=== PATIENT | female | born 1985 | race Caucasian/White ===

== ENCOUNTER 2017-05-24 12:30 | Emergency (ER) | payer BC ==
[~2017-05-24] VITALS: Ht 162.6 cm; Wt 55.2 kg
[2017-05-24 12:41] VITALS: TEMP 36.7; Ht 162.6 cm; Wt 55.2 kg
--- NOTE | 2017-05-24 13:15 | EMERGENCY ROOM VISIT NOTE ---
History Report prepared by Rajinder: Jason Stapleton Under the Supervision of: Dr. Héctor Mcgee M.D. First contact with patient: 12:56 Chief Complaint: GI ASSESSMENT Stated Complaint: PAIN IN R OVARY-BACK PAIN-VAGINA PAIN-6WKS PREG History of Present Illness The patient is a 32 year old female who is 6-weeks who presents to the Emergency Room with complaints of persistent abdominal pain that started a week ago. She states that she has also been having pelvic pain, and the pelvic floor has a "grabbing pain", which has been worsening. The patient adds that she has had pain between her shoulder blades with some shortness of breath. She says that she was nauseous this morning. She notes that she has had heart palpitations off and on recently, even when laying in bed. She says that she recently switched her OBGYN, and has her first appointment with the new one next month. The patient says that her last menstrual cycle was April 16, and has not had one this month. She says that she called her new OB prior to arrival and was told to come here. The patient adds that she has cysts on her ovaries. This is her second , and 10 days after her first , she had a hemorrhage due to having placenta left in her during the . The patient says that she was recently evaluated for syncope in the setting of urinary incontinence, and there was questionable activity in her prior EEG, but a recent 4 day study determined that she does not have epilepsy. The patient was briefly on Keppra, but is no longer on it. She notes that she has been tapering off Klonopin 2 mg. She denies any burning with urination or vision or hearing changes. Source of History: patient Onset: A week ago Position: abdomen Timing: other (persistent) Associated Symptoms: + SOB, + nausea, + back pain, No urinary symptoms ( burning with urination) Note: Associated symptoms: Pelvic pain. Intermittent heart palpitations. Denies vision or hearing changes. Review of Systems See HPI for pertinent positives and negatives. A total of ten systems were reviewed and were otherwise negative. Past Medical & Surgical Medical Problems: (1) Hemorrhage affecting (2) Ovarian cyst Family History Autoimmune disorder Cancer Diabetes mellitus Social History Smoking Status: Never Smoker Smokeless Tobacco Use: No Alcohol Use: none Occupation Status: unemployed Current/Historical Medications Scheduled Ascorbic Acid (Vitamin C 500 mg), 1,000 MG PO DAILY Clonazepam (Klonopin), 0.5 MG PO BID Cyanocobalamin (Cyanocobalamin), 1,000 MCG IM Mo Cyanocobalamin (Vitamin B-12), Unknown Dose PO DAILY Folic Acid (Folvite), 1 MG PO DAILY Magnesium Oxide (Magnesium), 200 MG PO DAILY Multivit/Min/Iron/Fol Ac/Pren ( Vitamin), 1 TAB PO DAILY Riboflavin (Vitamin B-2), 100 MG PO DAILY Allergies Coded Allergies: Levetiracetam (Unverified Allergy, Unknown, keppra rage, 05/24/17) Prednisone (Unverified Allergy, Unknown, rapid heartbeat/irritable, ) Sulfa Antibiotics (Unverified Allergy, Unknown, swelling, 05/24/17) Physical Exam Vital Signs Date Time Temp Pulse Resp B/P (MAP) Pulse Ox O2 Delivery O2 Flow Rate FiO2 05/24/17 17:13 72 18 107/61 100 05/24/17 15:20 71 18 100/66 100 Room Air 05/24/17 12:41 36.7 95 16 137/90 98 Room Air Physical Exam GENERAL: Awake, alert, well-appearing, in no distress HENT: Normocephalic, atraumatic. Oropharynx unremarkable. EYES: Normal conjunctiva. Sclera non-icteric. NECK: Supple. No nuchal rigidity. FROM. No JVD. RESPIRATORY: Clear to auscultation. CARDIAC: Regular rate, normal rhythm. Extremities warm and well perfused. Pulses equal. ABDOMEN: Soft, non-distended. Mild tenderness in right lower quadrant, no peritoneal signs. No rebound or guarding. No masses. RECTAL: Deferred. MUSCULOSKELETAL: Chest examination reveals no tenderness. The back is symmetrical on inspection without obvious abnormality. Mild tenderness in right CVA as well as mid-thoracic area in paraspinal muscles. No joint edema. LOWER EXTREMITIES: Calves are equal size bilaterally and non-tender. No edema. No discoloration. NEURO: Normal sensorium. No sensory or motor deficits noted. SKIN: No rash or jaundice noted. BEDSIDE ULTRASOUND: Transabdominal is limited but no definitive IUP. Medical Decision & Procedures ER Provider Diagnostic Interpretation: Radiology results as stated below per my review and radiologist interpretation: ULTRASOUND CLINICAL HISTORY: Right lower quadrant pain. 6 weeks . COMPARISON STUDY: No previous studies for comparison. TECHNIQUE: Transabdominal and transvaginal sonography of the pelvis was performed. FINDINGS: A probable intrauterine gestational sac is noted. This contains a probable yolk sac which measures 0.17 cm. A possible pole is noted with a crown-rump length of 0.12 cm. No cardiac activity is identified. The left ovary is normal. The right ovary contains a 1.9 cm hypoechoic lesion suggestive of a corpus luteal cyst. Color flow was identified within each ovary. There was no free fluid. IMPRESSION: 1. Intrauterine gestational sac identified which contains a yolk sac and possible tiny pole. No cardiac activity identified although this likely reflects a normal early intrauterine gestation. Therefore, clinical follow-up, including serial beta hCG levels and ultrasound is recommended. 2. 1.9 cm corpus luteal cyst within the right ovary. Electronically signed by: Mac Robison M.D. 05/24/2017 3:28 PM Dictated Date/Time: 05/24/2017 3:24 PM CHEST ONE VIEW PORTABLE CLINICAL HISTORY: 32 years-old Female presenting with CP (6wk use shield). TECHNIQUE: Portable upright AP view of the chest was obtained. COMPARISON: None. FINDINGS: Cardiomediastinal silhouette normal. Lungs and pleural spaces clear. Osseous structures normal. Upper abdomen normal. IMPRESSION: 1. No acute cardiopulmonary disease. Electronically signed by: Francisco Harmon M.D. 05/24/2017 2:25 PM Dictated Date/Time: 05/24/2017 2:24 PM Laboratory Results 05/24/17 13:50 Red Blood Count 4.02, Mean Corpuscular Volume 92.3, Mean Corpuscular Hemoglobin 32.3, Mean Corpuscular Hemoglobin Concent 35.0, Mean Platelet Volume 9.1, Neutrophils (%) (Auto) 58.5, Lymphocytes (%) (Auto) 31.8, Monocytes (%) (Auto) 6.7, Eosinophils (%) (Auto) 2.6, Basophils (%) (Auto) 0.2, Neutrophils # (Auto) 3.12, Lymphocytes # (Auto) 1.70, Monocytes # (Auto) 0.36, Eosinophils # (Auto) 0.14, Basophils # (Auto) 0.01 05/24/17 13:50 Test 05/24/17 13:50 05/24/17 13:55 White Blood Count 5.34 K/uL (4.8-10.8) Red Blood Count 4.02 M/uL (4.2-5.4) Hemoglobin 13.0 g/dL (12.0-16.0) Hematocrit 37.1 % (37-47) Mean Corpuscular Volume 92.3 fL (80-100) Mean Corpuscular Hemoglobin 32.3 pg (25-34) Mean Corpuscular Hemoglobin Concent 35.0 g/dl (32-36) Platelet Count 259 K/uL (130-400) Mean Platelet Volume 9.1 fL (7.4-10.4) Neutrophils (%) (Auto) 58.5 % Lymphocytes (%) (Auto) 31.8 % Monocytes (%) (Auto) 6.7 % Eosinophils (%) (Auto) 2.6 % Basophils (%) (Auto) 0.2 % Neutrophils # (Auto) 3.12 K/uL (1.4-6.5) Lymphocytes # (Auto) 1.70 K/uL (1.2-3.4) Monocytes # (Auto) 0.36 K/uL (0.11-0.59) Eosinophils # (Auto) 0.14 K/uL (0-0.5) Basophils # (Auto) 0.01 K/uL (0-0.2) RDW Standard Deviation 41.7 fL (36.4-46.3) RDW Coefficient of Variation 12.2 % (11.5-14.5) Immature Granulocyte % (Auto) 0.2 % Immature Granulocyte # (Auto) 0.01 K/uL (0.00-0.02) Anion Gap 7.0 mmol/L (3-11) Est Creatinine Clear Calc Drug Dose 103.0 ml/min Estimated GFR () 135.4 Estimated GFR (Non- 116.8 BUN/Creatinine Ratio 19.1 (10-20) Calcium Level 8.7 mg/dl (8.5-10.1) Total Bilirubin 0.4 mg/dl (0.2-1) Direct Bilirubin 0.1 mg/dl (0-0.2) Aspartate Amino Transf (AST/SGOT) 9 U/L (15-37) Alanine Aminotransferase (ALT/SGPT) 15 U/L (12-78) Alkaline Phosphatase 43 U/L (45-117) Total Protein 6.8 gm/dl (6.4-8.2) Albumin 3.7 gm/dl (3.4-5.0) Human Chorionic Gonadotropin, Quant 3182 mIU/mL Urine Color DK YELLOW Urine Appearance TURBID (CLEAR) Urine pH 8.0 (4.5-7.5) Urine Specific [facility] [place] 1.018 (1.000-1.030) Urine Protein NEG (NEG) Urine Glucose (UA) NEG (NEG) Urine Ketones NEG (NEG) Urine Occult Blood NEG (NEG) Urine Nitrite NEG (NEG) Urine Bilirubin NEG (NEG) Urine Urobilinogen NEG (NEG) Urine Leukocyte Esterase NEG (NEG) Urine WBC (Auto) 0 /hpf (0-5) Urine RBC (Auto) 0-4 /hpf (0-4) Urine Hyaline Casts (Auto) 1-5 /lpf (0-5) Urine Epithelial Cells (Auto) 20-30 /lpf (0-5) Urine Bacteria (Auto) NEG (NEG) Laboratory results reviewed by me Medications Administered Medications (Trade) Dose Ordered Sig/Alex Route Start Time Stop Time Status Last Admin Dose Admin Sodium Chloride 1,000 ml @ 999 mls/hr Q1H1M STAT IV 05/24/17 13:21 05/24/17 14:21 DC 05/24/17 14:08 999 MLS/HR ECG Indication: nausea Rate (beats per minute): 72 Rhythm: normal sinus Findings: no acute ischemic change, other (normal axis) ED Course 1259: The patient was evaluated in room A12A. A complete history and physical exam was performed. 1321: Ordered Tylenol Tab 1000 mg PO, NSS 1000 ml @ 999 mls/hr IV. 1640: I reevaluated the patient and she is resting. Discussed results and discharge instructions: she verbalized understanding and agreement. The patient is ready for discharge. Medical Decision I reviewed the patient's past medical history, medications, and the nursing notes as described above. Differential diagnoses: musculoskeletal strain, ectopic, appendicitis, PE, miscarriage, UTI. Patient is a 32 y/o who presents to the ED with muliple c/o back pain, cp, sob, RLQ, nausea per hpi. On arrival the patient well-appearing in NAD. AFVSS. Mild ttp RLQ without peritoneal signs. Limited bedside TAUS without definitive IUP. However, formal TVUS with +IUP but no cardiac activity although appears still early considering quant of 3K. Labs otherwise unremarkable with WBC wnl. UA negative for UTI or protein. CXR negative. EKG unremarkable. Considering patient not tachy or hypoxic and without pleuritic sx PE not likely. Findings and plan for follow-up d/w patient. Patient agreeable and d/c'd per discharge instructions. Medication Reconcilliation Current Medication List: was personally reviewed by me No medications on list. Blood Pressure Screening Patient's blood pressure: Elevated blood pressure Blood pressure disposition: Elevated BP felt to be situational Impression Primary Impression: Abdominal pain Additional Impression: Back pain Scribe Attestation The scribe's documentation has been prepared under my direction and personally reviewed by me in its entirety. I confirm that the note above accurately reflects all work, treatment, procedures, and medical decision making performed by me. Departure Information Dispostion Home / Self-Care Referrals No Doctor, Assigned (PCP) Patient Instructions Abdominal Pain - [facility], ED Preg Established Normal Sxs, [facility], Preg Back Pain Additional Instructions Please follow up with your fly worker in the next week for re-evaluation. Otherwise, your exam, lab results, and ultrasound did not show signs of an emergent condition at this time. Acetaminophen for pain as needed. Return to the emergency department for worsening symptoms as described in the accompanying instructions. Problem Qualifiers Primary Impression: Abdominal pain
[2017-05-24] MEDS ORDERED: SODIUM CHLORIDE 0.9% 1000ML 1,000 ML IV STA (13:21)
[2017-05-24] MEDS ORDERED: ACETAMINOPHEN 500 MG TAB PO STA (13:21)
[2017-05-24] MEDS ORDERED: ASCO500C43 PO (13:36)
[2017-05-24] MEDS ORDERED: MAGN1TAB41 PO (13:36)
[2017-05-24] MEDS ORDERED: PRENTAB26 PO (13:36)
[2017-05-24] MEDS ORDERED: VITB2100 PO (13:36)
[2017-05-24] MEDS ORDERED: CYAN100T PO (13:36)
[2017-05-24] MEDS ORDERED: CYNI1000 IM (13:36)
[2017-05-24] MEDS ORDERED: CLON0.5T3 PO (13:36)
[2017-05-24] MEDS ORDERED: FOLI1TAB7 PO (13:36)
[2017-05-24 14:04] LABS: BASO % 0.2 %; BASO ABS # 0.01 K/uL (0-0.2); COMPLETE YES; EOS % 2.6 %; HEMATOCRIT 37.1 % (37-47); IG% 0.2 %; LYMPH % 31.8 %; MEAN CELL VOLUME 92.3 fL (80-100); MEAN CORPUSCULAR HEMOGLOBIN 32.3 pg (25-34); MEAN PLATELET VOLUME 9.1 fL (7.4-10.4); MONO % 6.7 %; NEUT % 58.5 %; PLATELET COUNT 259 K/uL (130-400); RED BLOOD COUNT 4.02 M/uL (4.2-5.4); WHITE BLOOD COUNT 5.34 K/uL (4.8-10.8)
[2017-05-24 14:10] LABS: URINE APPEARANCE TURBID (CLEAR); URINE BILIRUBIN NEG (NEG); URINE COLOR DK YELLOW; URINE EPITHELIAL CELL AUTO 20-30 /lpf (0-5); URINE NITRITE NEG (NEG); URINE SPECIFIC GRAVITY 1.018 (1.000-1.030); UROBILINOGEN NEG (NEG); ZZUR CULT IF INDIC CLEAN CATCH NO
[2017-05-24 14:11] LABS: MANUAL MICROSCOPIC REQUIRED? NO; REVIEW REQ? NO
[2017-05-24 14:26] LABS: BUN/CREATININE RATIO 19.1 (10-20); CALCIUM 8.7 mg/dl (8.5-10.1); CREATININE 0.69 mg/dl (0.60-1.20); POTASSIUM 3.6 mmol/L (3.5-5.1)
--- NOTE | 2017-05-24 14:26 | DIAGNOSTIC IMAGING REPORT ---
CHEST ONE VIEW PORTABLE CLINICAL HISTORY: 32 years-old Female presenting with CP (6wk use shield). TECHNIQUE: Portable upright AP view of the chest was obtained. COMPARISON: None. FINDINGS: Cardiomediastinal silhouette normal. Lungs and pleural spaces clear. Osseous structures normal. Upper abdomen normal. IMPRESSION: 1. No acute cardiopulmonary disease. Electronically signed by: Francisco Harmon M.D. 05/24/2017 2:25 PM Dictated Date/Time: 05/24/2017 2:24 PM
--- NOTE | 2017-05-24 15:30 | DIAGNOSTIC IMAGING REPORT ---
ULTRASOUND CLINICAL HISTORY: Right lower quadrant pain. 6 weeks . COMPARISON STUDY: No previous studies for comparison. TECHNIQUE: Transabdominal and transvaginal sonography of the pelvis was performed. FINDINGS: A probable intrauterine gestational sac is noted. This contains a probable yolk sac which measures 0.17 cm. A possible pole is noted with a crown-rump length of 0.12 cm. No cardiac activity is identified. The left ovary is normal. The right ovary contains a 1.9 cm hypoechoic lesion suggestive of a corpus luteal cyst. Color flow was identified within each ovary. There was no free fluid. IMPRESSION: 1. Intrauterine gestational sac identified which contains a yolk sac and possible tiny pole. No cardiac activity identified although this likely reflects a normal early intrauterine gestation. Therefore, clinical follow-up, including serial beta hCG levels and ultrasound is recommended. 2. 1.9 cm corpus luteal cyst within the right ovary. Electronically signed by: Mac Robison M.D. 05/24/2017 3:28 PM Dictated Date/Time: 05/24/2017 3:24 PM
[2017-05-24 17:13] VITALS: BP 107/61; PULSE 72; O2SAT 100
== END 2017-05-24 17:16 | disposition home or self-care (01) ==
LOC: C.EDB 12:32 → C.EDA 17:16
DX: O99.89 Other specified diseases and conditions complicating pregnancy, childbirth and the puerperium (principal); R10.2 Pelvic and perineal pain; R10.30 Lower abdominal pain, unspecified; O26.891 Other specified pregnancy related conditions, first trimester; M54.9 Dorsalgia, unspecified; Z3A.01 Less than 8 weeks gestation of pregnancy; O34.81 Maternal care for other abnormalities of pelvic organs, first trimester; Z83.3 Family history of diabetes mellitus

== ENCOUNTER → 2017-06-11 | Outpatient (CLI) | payer BC ==
[~2017-06-11] MED LIST: ASCO500C43 PO; CLON0.5T3 PO; CYAN100T PO; CYNI1000 IM; FOLI1TAB7 PO; MAGN1TAB41 PO; PRENTAB26 PO; VITB2100 PO
[2017-06-11 16:44] LABS: BASO % 0.1 %; BASO ABS # 0.01 K/uL (0-0.2); COMPLETE YES; EOS % 1.8 %; HEMATOCRIT 37.7 % (37-47); IG% 0.3 %; LYMPH % 25.5 %; LYMPH ABS # 1.94 K/uL (1.2-3.4); MEAN CELL VOLUME 92.2 fL (80-100); MEAN CORPUSCULAR HEMOGLOBIN 31.5 pg (25-34); MEAN CORPUSCULAR HGB CONC 34.2 g/dl (32-36); MEAN PLATELET VOLUME 9.3 fL (7.4-10.4); MONO % 6.6 %; NEUT % 65.7 %; PLATELET COUNT 264 K/uL (130-400); RED BLOOD COUNT 4.09 M/uL (4.2-5.4)
[2017-06-11 18:47] LABS: URINE APPEARANCE CLEAR (CLEAR); URINE BILIRUBIN NEG (NEG); URINE COLOR YELLOW; URINE NITRITE NEG (NEG); URINE PH 6.5 (4.5-7.5); URINE SPECIFIC GRAVITY 1.015 (1.000-1.030); UROBILINOGEN NEG (NEG)
[2017-06-11 18:48] LABS: MANUAL MICROSCOPIC REQUIRED? NO; REVIEW REQ? NO
[2017-06-13 14:58] LABS: CHLAMYDIA TRACH RNA*** NOT DETECTED (NOT DETECTED); GC (NEIS GONORRHOEAE)RNA** NOT DETECTED (NOT DETECTED)
== END | disposition home or self-care (01) ==
LOC: C.LAB1850 15:48
PROVIDERS: ATTEND Obstetrics & Gynecology
DX: Z34.91 Encounter for supervision of normal pregnancy, unspecified, first trimester (principal)

== ENCOUNTER → 2017-08-21 | Outpatient (CLI) | payer BC | END | disposition home or self-care (01) | LOC: C.LABSPEC 15:07 | PROVIDERS: ATTEND Obstetrics & Gynecology | DX: N89.8 Other specified noninflammatory disorders of vagina (principal) ==

== ENCOUNTER → 2017-10-24 | Outpatient (CLI) | payer OTHER ==
[~2017-10-24] MED LIST changes: -FOLI1TAB7 PO; +FOLI1TAB8 PO
[2017-10-24 14:39] LABS: HEMATOCRIT 33.1 % (37-47); HEMOGLOBIN 11.5 g/dL (12.0-16.0)
== END | disposition home or self-care (01) ==
LOC: C.LAB1850 12:37
PROVIDERS: ATTEND Obstetrics & Gynecology
DX: Z34.83 Encounter for supervision of other normal pregnancy, third trimester (principal); R82.90 Unspecified abnormal findings in urine; L29.9 Pruritus, unspecified

== ENCOUNTER → 2017-12-31 | Outpatient (CLI) | payer OTHER | END | disposition home or self-care (01) | LOC: C.LABSPEC 13:29 | PROVIDERS: ATTEND Obstetrics & Gynecology | DX: Z34.83 Encounter for supervision of other normal pregnancy, third trimester (principal) ==

== ENCOUNTER 2018-01-20 15:38 | Outpatient (CLI) | payer OTHER ==
[~2018-01-20] VITALS: Ht 165.1 cm; Wt 79.8 kg
[2018-01-20 16:59] VITALS: Ht 165.1 cm; Wt 79.8 kg
== END 2018-01-20 18:42 | disposition home or self-care (01) ==
LOC: UNDOADMIN 15:38 → C.LD 15:38 → C.OPB 15:38 → C.LD 15:38 → C.OPB 18:42 → EDSTATUS 19:21 → C.OPB 19:23 → C.LD 19:23
PROVIDERS: ATTEND Obstetrics & Gynecology
DX: O26.893 Other specified pregnancy related conditions, third trimester (principal); N89.8 Other specified noninflammatory disorders of vagina; Z3A.39 39 weeks gestation of pregnancy

== ENCOUNTER 2018-01-28 07:47 | Inpatient (IN) | payer OTHER ==
[~2018-01-28] VITALS: Ht 167.6 cm; Wt 78.5 kg
[~2018-01-28 07:47] MED LIST changes: -ASCO500C43 PO; -CLON0.5T3 PO; -CYNI1000 IM; -FOLI1TAB8 PO; -VITB2100 PO
[2018-01-28] MEDS ORDERED: LACTATED RINGER'S 1000ML 1,000 ML IV PRN (08:01)
[2018-01-28] MEDS ORDERED: LACTATED RINGER'S 1000ML 500 ML IV PRN ×2 (08:03→13:11)
[2018-01-28] MEDS ORDERED: LACTATED RINGER'S 1000ML 1,000 ML IV SCH (08:15)
[2018-01-28] MEDS ORDERED: OXYTOCIN 30 UNITS/500ML NSS IV PRN ×2 (08:15→16:45)
[2018-01-28 08:35] LABS: HEMATOCRIT 32.8 % (37-47); HEMOGLOBIN 11.1 g/dL (12.0-16.0); MEAN CELL VOLUME 92.7 fL (80-100); MEAN CORPUSCULAR HEMOGLOBIN 31.4 pg (25-34); MEAN CORPUSCULAR HGB CONC 33.8 g/dl (32-36); MEAN PLATELET VOLUME 9.6 fL (7.4-10.4); PLATELET COUNT 275 K/uL (130-400); RED CELL DISTRIBUTION WIDTH CV 12.9 % (11.5-14.5); RED CELL DISTRIBUTION WIDTH SD 43.6 fL (36.4-46.3); WHITE BLOOD COUNT 9.87 K/uL (4.8-10.8)
[2018-01-28] MEDS: CALCIUM CARBONATE 500 MG CHEWABLE PO PRN ×2 (10:05→14:22)
[2018-01-28 10:15] VITALS: Ht 167.6 cm; Wt 78.5 kg
[2018-01-28] MEDS ORDERED: EpHEDrine SULFATE INJ 50 MG/ML AMP ONE (12:14)
[2018-01-28] MEDS ORDERED: BUPIVACAINE 0.25% 30 ML VIAL ONE ×2 (12:14→13:40)
[2018-01-28] MEDS ORDERED: FENTANYL CITRATE INJ 50 MCG/1 ML 2 ML VIAL ONE (12:15)
[2018-01-28] MEDS ORDERED: FENTANYL 2MCG/ML ROPIV 1.25MG/ML 100ML BAG ONE (12:15)
[2018-01-28] MEDS ORDERED: NALOXONE HCL INJ 1 MG in SODIUM CHLORIDE 0.9% 1000ML 1,000 ML IV PRN (13:11)
[2018-01-28] MEDS ORDERED: DiphenhydrAMINE HCL 50 MG/ML VIAL IV PRN (13:15)
[2018-01-28] MEDS ORDERED: NALBUPHINE HCL INJ 10 MG/ML AMP IV PRN (13:15)
[2018-01-28] MEDS ORDERED: ONDANSETRON INJ 2 MG/ML 2 ML VIAL IV PRN (13:15)
[2018-01-28] MEDS ORDERED: NALOXONE HCL INJ 0.4 MG/1 ML VIAL/CARP IV PRN (13:15)
[2018-01-28] MEDS ORDERED: EpHEDrine SULFATE INJ 50 MG/ML AMP IV PRN (13:15)
[2018-01-28] MEDS ORDERED: FENTANYL 2MCG/ML ROPIV 1.25MG/ML 100ML BAG EPI PRN (13:15)
[2018-01-28] MEDS ORDERED: ACETAMINOPHEN 325 MG TAB PO PRN (16:45)
[2018-01-28] MEDS ORDERED: BENZOCAINE 20% AER SPR 82.5 GM CAN EXT PRN (16:45)
[2018-01-28] MEDS ORDERED: LANOLIN OINT EXT PRN (16:45)
[2018-01-28] MEDS ORDERED: SUPERCREAM 0.870 % 15GM JAR EXT PRN (16:45)
[2018-01-28] MEDS ORDERED: DIPHTHERIA/TETANUS/PERTUSSIS 0.5 ML SYR/VIAL IM. ONE (16:45)
--- NOTE | 2018-01-28 17:21 | DELIVERY SUMMARY ---
DATE OF OPERATION: 01/28/2018 PREOPERATIVE DIAGNOSES: 1. Intrauterine at 41 0/7 weeks. 2. Favorable cervix. POSTOPERATIVE DIAGNOSES: 1. Intrauterine at 41 0/7 weeks. 2. Favorable cervix. 3. bradycardia. PROCEDURES: 1. Pitocin augmentation. 2. Epidural anesthesia. 3. Vacuum-assisted vaginal delivery. SURGEON: Dr. Jackson. ANESTHESIA: Epidural. ESTIMATED BLOOD LOSS: 300 cc. DETAILS OF PROCEDURE: The patient presented to Labor and Delivery for post-dates induction at 41 0/7 weeks. She had a favorable cervix and was found to be 3 cm dilated and 80% effaced on admission so Pitocin augmentation was initiated. When she became uncomfortable underwent an epidural anesthesia. During the placement of the epidural anesthetic it was thought that she was leaking. She was rechecked and indeed found to be ruptured membranes and she was 5 cm dilated. heart tones showed variable decels ever since spontaneous rupture of membranes for clear fluid. The patient progressed quite quickly afterwards, had several more episodes of variable decels and progressed to complete complete and +2 to +3 station. She pushed with very good effort for the entire push but after 5 minutes the heart tones were in the 80s to 90s without good return to baseline in between. So therefore after 7 minutes of the baby being in the 80s to 90s and three further pushes with contractions to get the baby to +4 station I decided to place a vacuum for outlet assistance. The patient and her were verbally consented for this knowing the risks of possible injury to the baby or injury to the mother's bottom and perineum. Verbal consent was obtained. Her bladder had been drained of urine just prior to pushing and I thought the baby was in right occiput anterior presentation. The vacuum was applied with the contraction and with maternal pushing. No pop off and pressure no greater than 40 mmHg the infant was delivered in direct occiput posterior presentation. There was a nuchal cord x3 that was reduced and then the rest of the baby was delivered without difficulty. There was immediate cry and respiratory effort so the noise and mouth were bulb suctioned. The was placed on the maternal abdomen for drying and attention. At 1 minute of life the cord was clamped and cut and cord blood and gases were obtained. Placenta was delivered spontaneously intact with a three-vessel cord. Cervix, sulci, rectum and perineum were all found to be intact. A quick sweep of the uterus was performed as with her last delivery she had a large retained piece of placenta that caused her to hemorrhage and have a D&C 10 days . I did not appreciate any retained products and reassured the patient. Hemostasis was obtained with dilute Pitocin and fundal massage. Estimated blood loss 300 cc. Apgars 8 and 9. Mother and baby doing well at the end of the delivery. I attest to the content of the Intraoperative Record and any orders documented therein. Any exceptions are noted below. MTDD
--- NOTE | 2018-01-28 19:14 | Anesthesia Procedure Note ---
Anesthesia Epidural Removal Nt Date & Time January 28, 2018 at 19:14 Vital Signs Pain Intensity: 0.0 Notes Mental Status: alert / awake / arousable, participated in evaluation Nausea / Vomiting: adequately controlled Pain: adequately controlled Airway Patency, RR, SpO2: stable & adequate BP & HR: stable & adequate Hydration State: stable & adequate Neuraxial Anesthesia: was administered, sensory block is resolving Anesthetic Complications: no major complications apparent, pt satisfied with anesthetic care Epidural: removed without complications, with tip intact
[2018-01-28 19:30] VITALS: BP 104/69; PULSE 68; TEMP 36.6
[2018-01-28] MEDS: DOCUSATE SODIUM 100 MG CAP PO SCH (20:12)
[2018-01-29] MEDS: IBUPROFEN 600 MG TAB PO PRN ×5 (00:41→23:54)
[2018-01-29 05:07] VITALS: BP 99/62; PULSE 81; TEMP 36.6
[2018-01-29 06:24] LABS: HEMATOCRIT 29.8 % (37-47); HEMOGLOBIN 10.5 g/dL (12.0-16.0)
--- NOTE | 2018-01-29 06:48 | Progress Note ---
Subjective January 29, 2018. Subjective conversation w/ patient Ambulation: limited ambulation Voiding: no voiding problems Diet Tolerance: Regular Diet Lochia: Moderate Feeding Type: Breast Feeding Pain: 5/10 pain, improved with analgesia Review of Systems Constitutional: No fever, No chills Respiratory: No cough Cardiac: No chest pain Abdomen: + nausea Objective Vital Signs Date Time Temp Pulse Resp B/P (MAP) Pulse Ox O2 Delivery O2 Flow Rate FiO2 01/29/18 05:07 36.6 81 16 99/62 (74) Room Air 01/29/18 00:45 Room Air 01/28/18 19:30 36.6 68 18 104/69 (81) Room Air Physical Exam General Appearance: WELL-APPEARING, WD/WN, NO APPARENT DISTRESS Respiratory/Chest: lungs clear, normal breath sounds Cardiovascular: regular rate, rhythm Abdomen: soft Fundus: Firm, Non-Tender, Relation to Umbilicus (1 below) Extremities: no calf tenderness Laboratory Results Last 24 Hours Test 01/28/18 08:21 01/29/18 05:48 White Blood Count 9.87 K/uL Red Blood Count 3.54 M/uL Hemoglobin 11.1 g/dL 10.5 g/dL Hematocrit 32.8 % 29.8 % Mean Corpuscular Volume 92.7 fL Mean Corpuscular Hemoglobin 31.4 pg Mean Corpuscular Hemoglobin Concent 33.8 g/dl RDW Standard Deviation 43.6 fL RDW Coefficient of Variation 12.9 % Platelet Count 275 K/uL Mean Platelet Volume 9.6 fL Medications Current Inpatient Medications Medications (Trade) Dose Ordered Sig/Alex Route Start Time Stop Time Status Last Admin Dose Admin Oxytocin (Pitocin IV) 30 units UD PRN IV 01/28/18 16:45 02/27/18 16:44 Benzocaine (Dermoplast Aero Spr) 1 appln PRN PRN EXT 01/28/18 16:45 02/27/18 16:44 01/28/18 21:01 82.5 APPLN Cocaine HCl (Supercream 0.870% Cr) BID PRN EXT 01/28/18 16:45 02/11/18 16:44 01/28/18 21:01 15 GM Lanolin (Lanolin Oint) PRN PRN EXT 01/28/18 16:45 02/27/18 16:44 Prenat Multivit/ [place]/Iron/Folic Ac ( Vitamin Tab) 1 tab DAILY PO 01/29/18 08:00 02/28/18 07:59 Ibuprofen (Motrin Tab) 600 mg Q4H PRN PO 01/28/18 16:45 02/27/18 16:44 01/29/18 05:17 600 MG Acetaminophen (Tylenol Tab) 650 mg Q6H PRN PO 01/28/18 16:45 02/27/18 16:44 01/29/18 05:15 650 MG Oxycodone/ Acetaminophen (Percocet 5-325mg Tab) 1 tab Q4H PRN PO 01/28/18 16:45 02/11/18 16:44 Docusate Sodium (coLACE CAP) 100 mg BID PO 01/28/18 20:00 02/27/18 19:59 01/28/18 20:12 100 MG Assessment and Plan Problem List Medical Problems: (1) Abdominal pain Status: Acute (2) Back pain Status: Acute Post- Day#: 1 Continue Routine Care: 32F s/p NVD day 1 - O+, Rubella Immune, GBS -ve - pt doing well clinically - Vital Signs reviewed and WNL - Hemoglobin Reviewed. 11.1 -> 10.5 - Encourage Ambulation, monitor and control pain with Motrin PRN - Encourage Breast Feeding Resident Physician Supervision Note: I interviewed and examined the patient. Discussed with Dr. Gordon and agree with findings and plan as documented in the note. Any exceptions or clarifications are listed here: Doing well. Nausea related to significant uterine cramping she is having. Reassured normal. Routine care. Documented By: Caprice Jackson Resident Tracking Resident Involvement: Resident Care Provided Care Provided: OB Delivery
--- NOTE | 2018-01-29 07:08 | Discharge Instructions ---
Discharge Instructions Date of Service January 29, 2018. Admission Reason for Admission: Induction Discharge Discharge Diagnosis / Problem: Vaginal Delivery Discharge Goals Goal(s): Routine recovery after delivery Medications Continue Dispensed Medications: supercream, dermaplast, tucks, lansinoh Activity Recommendations Activity Limitations: per Instructions/Follow-up section . Instructions / Follow-Up Instructions / Follow-Up ACTIVITY RECOMMENDATIONS: * Gradual return to full activity over the next 2-3 weeks. * No lifting - nothing heavier than baby over the next 2-3 weeks. * Do not engage in vigorous exercise, sexual activity or sports until cleared by your physician. * Do not drive or operate any motorized equipment until cleared by your physician. * You may shower/bathe daily. MEDICATIONS: For discomfort or pain, you may use Acetaminophen (Tylenol), Ibuprofen (Advil), or Naproxen (Aleve) following the package directions. For constipation you may use Colace following the package directions. BREAST CARE: If you are not breast feeding: * Wear a supportive bra 24 hours a day for one to two weeks. * Avoid stimulating your breasts and nipples as much as possible during the first few weeks after delivery. * When taking a shower, have the warm water hit your back, not breasts. * When your breasts feel full, apply ice packs. Usually three to four times a day helps ease the discomfort. * Take a mild pain medication (Tylenol / Motrin) when you are uncomfortable. If breast feeding: * Use breast milk to lubricate nipples. Lansinoh cream may be used for sore nipples. You do not need to remove cream prior to breast feeding. If using a different brand of cream, check the label for directions regarding removal of cream prior to nursing. * Wear a supportive bra. * If having problems with breasts or breast feeding, call a reporting consultant or your health care provider. EPISIOTOMY CARE: After delivery, if you have an episiotomy (stitches), the following steps will ease discomfort and aid healing. * For the first 24 hours after delivery, place ice packs next to your episiotomy to help reduce swelling. * After the first 24 hour-period, sitz baths, either portable or in the tub, are suggested. A shower with a shower arm sprayed over the episiotomy may be comforting. * Amaya care should be done after each voiding and bowel movement. Squirt warm water from a plastic bottle over the perineum (region of the body between the anus and urinary opening) and pat dry. * Use Dermoplast to ease discomfort. Shake container. [place] directly over the episiotomy. Place a Tucks on a clean sanitary pad next to your episiotomy. SPECIAL CARE INSTRUCTIONS: When you are discharged from the hospital, it is important for you to follow the instructions listed below: * During the first week at home, you should be able to care for yourself and your baby. In addition, the usual light household activities are encouraged. * Limit your activities to the way you feel. Do not try to clean the house or move furniture. Be sensible. * If you actively engage in sports and have done so up until the time of your delivery, you may resume these activities as soon as you feel able. This may take up to one month or even longer. Use good judgment. * Continue to take your vitamins for at least six weeks after the of your baby. * Your diet need not be limited unless you were on a special diet before your delivery. Breast-feeding mothers need around 2500 calories per day and at least 64-80 ounces of fluid per day (8 to 10 glasses). * You should eat foods from the four major food groups. Crash diets or fad diets are to be avoided. Eating lean meats, fresh fruits and vegetables, low-fat dairy products, high fiber foods and a regular exercise program, will help you get back to your pre- weight without putting your health at risk. * Constipation is sometimes a problem after delivery. Take a mild laxative as needed. If breast feeding, Milk of Magnesia is acceptable to use. You may use a suppository or Fleets enema if no episiotomy. * A daily shower or tub bath is suggested. Be sure to thoroughly and gently dry the perineum. * A bloody vaginal discharge will usually continue until around four weeks post . A small amount of bleeding may continue for as long as six weeks. Vaginal discharge changes from the bright red bleeding after delivery to pink then brownish and finally yellowish-pink before becoming white and disappearing. * Bleeding may increase with activity. Your first period may come in 4-8 weeks. If you are breast feeding, your period may be delayed even longer. * Hart (sex) can begin whenever both you and your partner feel comfortable and do not have any form of genital infection. It is recommended that you wait at least six weeks for internal and external healing to occur. If you have questions, please talk to your health care practitioner. A condom should be used to prevent infection and . * Foreplay, gentle intercourse and lubrication is very important the first several times to prevent pain. A water-based lubricant such as K-Y jelly or Astroglide may be used. * If you have RH negative blood and your baby is RH positive, you will receive RHOGAM by injection prior to discharge. The nurse will give you a card to keep with you that has the date and place that you received RHOGAM after delivery. * During your care, you had a Rubella screen done to check for the presence of rubella antibodies in your blood. If your test was negative, you will receive a Rubella vaccine prior to discharge. This vaccine may cause a fever, soreness at the injection site and flu-like symptoms. If these symptoms persist, notify your health care practitioner. is not advised for one month after a Rubella vaccine. * Verbalizes understanding of car seat law as reviewed with patient nursing. * Car Seat hand-out given and reviewed with patient by nursing. * Shaken baby information reviewed with patient by nursing. Call you doctor if: * Heavy bleeding (saturating several pads an hour) or passing clots the size of your fist. * A fever >101 degrees F (38.3 degrees C) on two occasions four hours apart and /or chills. * Unusual pain in the pelvic or vaginal areas. * "Baby Blues" lasting longer than two weeks. If you have any questions or concerns, call your health care practitioner at . FOLLOW UP VISIT: * Please call the office at to schedule a 6 week examination. It is important you keep this appointment. It is important for you to make arrangements for either yearly or twice yearly check-ups thereafter. Current Hospital Diet Patient's current hospital diet: Regular OB Diet Discharge Diet Recommended Diet: Regular Diet Pending Studies Studies pending at discharge: no Medical Emergencies . Who to Call and When: Medical Emergencies: If at any time you feel your situation is an emergency, please call [phone] immediately. . Non-Emergent Contact Non-Emergency issues call your: Primary Care Provider . . "Provider Documentation" section prepared by Geovanni Gordon. .
[2018-01-29 08:40] VITALS: BP 115/75; PULSE 90; TEMP 36.7; O2SAT 97
[2018-01-29] MEDS: DOCUSATE SODIUM 100 MG CAP PO SCH ×2 (08:40→20:09)
[2018-01-29] MEDS: PRENATAL VITAMIN TAB PO SCH (08:40)
[2018-01-29 12:40] VITALS: BP 102/64; PULSE 88; TEMP 36.9; O2SAT 96
[2018-01-29] MEDS: OXYCODONE/ACETAMINOPHEN 5-325 TAB PO PRN ×2 (13:15→18:10)
[2018-01-29 15:25] VITALS: BP 100/61; PULSE 76; TEMP 36.6
[2018-01-29 23:45] VITALS: BP 102/65; PULSE 71; TEMP 36.4; O2SAT 96
--- NOTE | 2018-01-30 06:52 | Progress Note ---
Subjective January 30, 2018. Subjective conversation w/ patient, physical exam, chart review, lab review Ambulation: ambulating normally Voiding: no voiding problems Diet Tolerance: Regular Diet Lochia: Small Objective Vital Signs Date Time Temp Pulse Resp B/P (MAP) Pulse Ox O2 Delivery O2 Flow Rate FiO2 01/29/18 23:45 36.4 71 16 102/65 (77) 96 Room Air 01/29/18 23:45 96 Room Air 01/29/18 15:25 Room Air 01/29/18 15:25 36.6 76 18 100/61 (74) Room Air 01/29/18 12:40 36.9 88 16 102/64 (77) 96 Room Air 01/29/18 08:40 36.7 90 16 115/75 (88) 97 Room Air 01/29/18 08:40 Room Air Physical Exam General Appearance: WELL-APPEARING Abdomen: non tender Fundus: Firm Extremities: no calf tenderness Assessment and Plan Problem List Medical Problems: (1) Abdominal pain Status: Acute (2) Back pain Status: Acute Post- Day#: 2 Continue Routine Care: home
[2018-01-30 07:35] VITALS: BP 100/64; PULSE 75; TEMP 36.7; O2SAT 96
[2018-01-30] MEDS: PRENATAL VITAMIN TAB PO SCH (07:45)
[2018-01-30] MEDS: OXYCODONE/ACETAMINOPHEN 5-325 TAB PO PRN ×2 (07:45→12:04)
[2018-01-30] MEDS: DOCUSATE SODIUM 100 MG CAP PO SCH (07:45)
[2018-01-30] MEDS: IBUPROFEN 600 MG TAB PO PRN ×2 (07:46→12:04)
[2018-01-30 13:40] VITALS: BP_DIAS 64; PULSE 75; TEMP 36.7
== END 2018-01-30 13:40 | disposition home or self-care (01) | DRG 775 ==
LOC: C.LD 07:47 → C.OBG 18:53
PROVIDERS: ADMIT Obstetrics & Gynecology; ATTEND Obstetrics & Gynecology
PROC: 10D07Z6 Extraction of Products of Conception, Vacuum, Via Natural or Artificial Opening (ICD-10-PCS; principal; 2018-01-28)
DX: O48.0 Post-term pregnancy (principal); O76 Abnormality in fetal heart rate and rhythm complicating labor and delivery; O69.81X0 Labor and delivery complicated by cord around neck, without compression, not applicable or unspecified; Z3A.41 41 weeks gestation of pregnancy; Z37.0 Single live birth